=== PATIENT | female | born 1940 | race Caucasian/White ===

== ENCOUNTER 2021-02-11 22:23 | Emergency (ER) | payer MEDICARE, OTHER ==
[~2021-02-11] VITALS: Ht 157.5 cm; Wt 72.6 kg
== END 2021-02-11 23:25 | disposition left against medical advice (07) ==
LOC: ER 22:23
DX: R07.9 Chest pain, unspecified (principal); Z53.21 Procedure and treatment not carried out due to patient leaving prior to being seen by health care provider
CPT/HCPCS: 99282

== ENCOUNTER 2021-02-19 18:42 | Emergency (ER) | payer MEDICARE, OTHER ==
[~2021-02-19] VITALS: Ht 157.5 cm; Wt 76.2 kg
== END 2021-02-19 20:44 | disposition home or self-care (01) ==
LOC: CT 18:42 → ER 18:42
DX: R06.00 Dyspnea, unspecified (principal); R07.9 Chest pain, unspecified; I95.89 Other hypotension; N28.9 Disorder of kidney and ureter, unspecified
CPT/HCPCS: 71046; 99283-25

== ENCOUNTER → 2021-02-19 | Outpatient (CLI) | payer MEDICARE, OTHER ==
[2021-02-19 17:56] LABS: BASOPHILS ABSOLUTE AUTO 0.04 K/mm3 (0.00-0.23); BASOPHILS PERCENT AUTO 0 % (0-2); EOSINOPHILS ABSOLUTE AUTO 0.38 K/mm3 (0.00-0.68); EOSINOPHILS PERCENT AUTO 3 % (0-6); Hematocrit 36.6 % (33.0-51.0); Hemoglobin 11.2 g/dL (11.5-16.0); IMMATURE GRAN ABSOLUTE AUTO 0.07 K/mm3 (0.00-0.10); IMMATURE GRAN PERCENT AUTO 1 % (0-1); LYMPHOCYTES ABSOLUTE AUTO 0.94 K/mm3 (0.84-5.20); LYMPHOCYTES PERCENT AUTO 8 % (21-46); MONOCYTES ABSOLUTE AUTO 0.77 K/mm3 (0.16-1.47); MONOCYTES PERCENT AUTO 7 % (4-13); Mean Corpuscular HGB 27.9 pg (26.0-34.0); Mean Corpuscular HGB Conc 30.6 g/dL (31.5-36.5); Mean Corpuscular Volume 91 fL (80-100); Mean Platelet Volume 12.7 fL (9.1-12.4); NEUTROPHILS ABSOLUTE AUTO 8.98 K/mm3 (1.96-9.15); NEUTROPHILS PERCENT AUTO 80 % (41-73); Platelet Count 143 K/mm3 (150-400); RDW Coefficient Variation 14.7 % (11.7-14.2); RDW Standard Deviation 49.3 fL (35.1-46.3); Red Blood Cell Count 4.02 M/mm3 (3.80-5.20); White Blood Cell Count 11.18 K/mm3 (4.00-11.30)
[2021-02-19 18:08] LABS: Anion Gap 2 mmol/L (6-16); Blood Urea Nitrogen 33 mg/dL (8-24); Bun/Creatinine Ratio 16.7 (12.0-20.0); CO2, Blood 37 mmol/L (21-32); Calcium, Blood 8.2 mg/dL (8.5-10.1); Chloride, Blood 102 mmol/L (98-108); Creatinine, Blood 1.98 mg/dL (0.40-1.00); Glomerular Filtration Rate 24 (60-); Glucose, Blood 86 mg/dL (70-99); Potassium, Blood 4.4 mmol/L (3.5-5.5); Sodium, Blood 141 mmol/L (136-145)
[2021-02-19 18:13] LABS: Troponin I <0.017 ng/mL (0.000-0.040)
== END | disposition home or self-care (01) ==
LOC: LAB SHORT 17:49
PROVIDERS: Physician Assistant
DX: R07.9 Chest pain, unspecified (principal)
CPT/HCPCS: 80048; 84484; 85025

== ENCOUNTER 2022-06-23 13:10 | Emergency (ER) | payer MEDICARE, OTHER ==
[~2022-06-23] VITALS: Ht 167.6 cm; Wt 65.8 kg
[2022-06-23 13:43] LABS: BASOPHILS ABSOLUTE AUTO 0.03 K/mm3 (0.00-0.23); BASOPHILS PERCENT AUTO 0 % (0-2); EOSINOPHILS ABSOLUTE AUTO 0.18 K/mm3 (0.00-0.68); EOSINOPHILS PERCENT AUTO 2 % (0-6); Hematocrit 33.5 % (33.0-51.0); Hemoglobin 10.3 g/dL (11.5-16.0); IMMATURE GRAN ABSOLUTE AUTO 0.04 K/mm3 (0.00-0.10); IMMATURE GRAN PERCENT AUTO 0 % (0-1); LYMPHOCYTES ABSOLUTE AUTO 1.03 K/mm3 (0.84-5.20); LYMPHOCYTES PERCENT AUTO 11 % (21-46); MONOCYTES ABSOLUTE AUTO 0.59 K/mm3 (0.16-1.47); MONOCYTES PERCENT AUTO 6 % (4-13); Mean Corpuscular HGB 26.8 pg (26.0-34.0); Mean Corpuscular HGB Conc 30.7 g/dL (31.5-36.5); Mean Corpuscular Volume 87 fL (80-100); Mean Platelet Volume 12.5 fL (9.1-12.4); NEUTROPHILS ABSOLUTE AUTO 7.76 K/mm3 (1.96-9.15); NEUTROPHILS PERCENT AUTO 81 % (41-73); Platelet Count 183 K/mm3 (150-400); RDW Coefficient Variation 15.3 % (11.7-14.2); RDW Standard Deviation 48.8 fL (35.1-46.3); Red Blood Cell Count 3.85 M/mm3 (3.80-5.20); White Blood Cell Count 9.63 K/mm3 (4.00-11.30)
[2022-06-23 14:03] LABS: Albumin, Blood 3.2 g/dL (3.4-5.0); Albumin/Globulin Ratio 0.9 (0.8-1.8); Bilirubin, Total 0.3 mg/dL (0.1-1.0); Bun/Creatinine Ratio 16.2 (12.0-20.0); Calcium, Blood 8.8 mg/dL (8.5-10.1); Creatinine, Blood 1.48 mg/dL (0.40-1.00); Globulin, Blood 3.4 g/dL (2.2-4.0); Potassium, Blood 3.9 mmol/L (3.5-5.5); Total Protein, Blood 6.6 g/dL (6.4-8.2)
[2022-06-23 14:23] LABS: Influenza A, PCR NEGATIVE (NEGATIVE); Influenza B, PCR NEGATIVE (NEGATIVE); Resp Syncytial Virus, PCR NEGATIVE (NEGATIVE); SARS-Cov-2 (COVID-19) PCR, MMC NEGATIVE (NEGATIVE)
[2022-06-23 16:32] LABS: Source, Urine Clean Catch
[2022-06-23 16:42] LABS: Appearance, Urine Clear (Clear); Bilirubin, Urine Neg (Neg); Blood, Urine 2+ (Neg); Glucose Qualitative, Urine Neg (Neg); Ketones, Urine Neg (Neg); Leukocyte Esterase, Urine Neg (Neg); Nitrite, Urine Neg (Neg); Protein, Urine Neg (Neg); Urobilinogen, Urine NORM (Normal)
[2022-06-23 17:00] LABS: Color, Urine Pale Yellow (P-Yellow)
[2022-06-23 17:04] LABS: White Blood Cells, Urine 0-2 /hpf (0-5)
[2022-06-23 17:05] LABS: Bacteria Few /hpf; Hyaline Casts 0-2 /lpf (0-2); Squamous Epithelial Cells Few /hpf (Few); Transitional Epithelial Cells Rare /hpf (0-Rare)
== END 2022-06-23 19:23 | disposition home or self-care (01) ==
LOC: ER 13:10
PROVIDERS: Physician Assistant
DX: R53.1 Weakness (principal); J44.9 Chronic obstructive pulmonary disease, unspecified; I50.9 Heart failure, unspecified; F17.210 Nicotine dependence, cigarettes, uncomplicated; Z20.822 Contact with and (suspected) exposure to COVID-19
CPT/HCPCS: 0241U; 71046; 80053; 81001; 83605; 83880; 84484; 85025; 93005; 93010

== ENCOUNTER → 2022-07-12 | Outpatient (CLI) | payer MEDICARE, OTHER ==
[~2022-07-12] MED LIST: ELIQUIS2.5 M1 PO; FERRO-TIME325 M1 PO; LEVSOD75 PO; METOPROLOL TART25 MG PO; Norco 5-325 Ta1 EACH PO; SPIRONOLACTONE25 MG PO; TORSE20 PO
[2022-07-12 17:14] LABS: BASOPHILS ABSOLUTE AUTO 0.03 K/mm3 (0.00-0.23); BASOPHILS PERCENT AUTO 0 % (0-2); EOSINOPHILS ABSOLUTE AUTO 0.11 K/mm3 (0.00-0.68); EOSINOPHILS PERCENT AUTO 1 % (0-6); Hemoglobin 9.7 g/dL (11.5-16.0); IMMATURE GRAN ABSOLUTE AUTO 0.06 K/mm3 (0.00-0.10); IMMATURE GRAN PERCENT AUTO 1 % (0-1); LYMPHOCYTES ABSOLUTE AUTO 0.73 K/mm3 (0.84-5.20); LYMPHOCYTES PERCENT AUTO 7 % (21-46); MONOCYTES ABSOLUTE AUTO 0.57 K/mm3 (0.16-1.47); MONOCYTES PERCENT AUTO 5 % (4-13); Mean Corpuscular HGB 27.2 pg (26.0-34.0); Mean Corpuscular HGB Conc 30.3 g/dL (31.5-36.5); Mean Corpuscular Volume 90 fL (80-100); NEUTROPHILS ABSOLUTE AUTO 9.06 K/mm3 (1.96-9.15); NEUTROPHILS PERCENT AUTO 86 % (41-73); Platelet Count 194 K/mm3 (150-400); RDW Coefficient Variation 16.6 % (11.7-14.2); RDW Standard Deviation 54.6 fL (35.1-46.3); Red Blood Cell Count 3.56 M/mm3 (3.80-5.20); White Blood Cell Count 10.56 K/mm3 (4.00-11.30)
[2022-07-12 17:25] LABS: Mean Platelet Volume 13.1 fL (9.1-12.4)
== END | disposition home or self-care (01) ==
LOC: LAB SHORT 14:02 → LAB 14:02
PROVIDERS: Physician Assistant
DX: C34.11 Malignant neoplasm of upper lobe, right bronchus or lung (principal); E11.22 Type 2 diabetes mellitus with diabetic chronic kidney disease; N18.9 Chronic kidney disease, unspecified; K21.9 Gastro-esophageal reflux disease without esophagitis
CPT/HCPCS: 85025

== ENCOUNTER 2022-07-15 13:22 | Inpatient (IN) | payer MEDICARE, OTHER ==
[~2022-07-15] VITALS: Ht 157.5 cm; Wt 76.8 kg
[2022-07-15 14:27] LABS: Base Excess Venous 10.2 mmol/L; Bicarbonate Venous 31.8 mmol/L (24.0-30.0); PCO2 Venous 66.2 mmHg (38-42); pH Blood Venous 7.34 (7.34-7.37)
[2022-07-15 14:29] LABS: BASOPHILS ABSOLUTE AUTO 0.06 K/mm3 (0.00-0.23); BASOPHILS PERCENT AUTO 1 % (0-2); EOSINOPHILS ABSOLUTE AUTO 0.15 K/mm3 (0.00-0.68); EOSINOPHILS PERCENT AUTO 2 % (0-6); Hematocrit 32.5 % (33.0-51.0); Hemoglobin 9.9 g/dL (11.5-16.0); IMMATURE GRAN ABSOLUTE AUTO 0.04 K/mm3 (0.00-0.10); IMMATURE GRAN PERCENT AUTO 0 % (0-1); LYMPHOCYTES ABSOLUTE AUTO 1.01 K/mm3 (0.84-5.20); LYMPHOCYTES PERCENT AUTO 10 % (21-46); MONOCYTES ABSOLUTE AUTO 0.55 K/mm3 (0.16-1.47); MONOCYTES PERCENT AUTO 6 % (4-13); Mean Corpuscular HGB 27.3 pg (26.0-34.0); Mean Corpuscular HGB Conc 30.5 g/dL (31.5-36.5); Mean Corpuscular Volume 90 fL (80-100); Mean Platelet Volume 12.9 fL (9.1-12.4); NEUTROPHILS ABSOLUTE AUTO 8.15 K/mm3 (1.96-9.15); NEUTROPHILS PERCENT AUTO 82 % (41-73); Platelet Count 198 K/mm3 (150-400); RDW Coefficient Variation 16.3 % (11.7-14.2); Red Blood Cell Count 3.62 M/mm3 (3.80-5.20); White Blood Cell Count 9.96 K/mm3 (4.00-11.30)
[2022-07-15 14:51] LABS: Albumin, Blood 3.3 g/dL (3.4-5.0); Bilirubin, Total 0.3 mg/dL (0.1-1.0); Bun/Creatinine Ratio 14.8 (12.0-20.0); Calcium, Blood 8.2 mg/dL (8.5-10.1); Creatinine, Blood 1.76 mg/dL (0.40-1.00); Globulin, Blood 3.3 g/dL (2.2-4.0); Total Protein, Blood 6.6 g/dL (6.4-8.2)
[2022-07-15 15:33] LABS: Influenza A, PCR NEGATIVE (NEGATIVE); Influenza B, PCR NEGATIVE (NEGATIVE); Resp Syncytial Virus, PCR NEGATIVE (NEGATIVE); SARS-Cov-2 (COVID-19) PCR, MMC NEGATIVE (NEGATIVE)
[2022-07-15 17:59] LABS: CPK Creatine Kinase 37 U/L (26-193)
[2022-07-16 01:42] LABS: BASOPHILS ABSOLUTE AUTO 0.01 K/mm3 (0.00-0.23); BASOPHILS PERCENT AUTO 0 % (0-2); EOSINOPHILS PERCENT AUTO 0 % (0-6); Hematocrit 31.8 % (33.0-51.0); Hemoglobin 9.7 g/dL (11.5-16.0); Mean Corpuscular HGB 27.1 pg (26.0-34.0); Mean Corpuscular HGB Conc 30.5 g/dL (31.5-36.5); Mean Corpuscular Volume 89 fL (80-100); Platelet Count 165 K/mm3 (150-400); RDW Coefficient Variation 16.2 % (11.7-14.2); RDW Standard Deviation 52.7 fL (35.1-46.3); Red Blood Cell Count 3.58 M/mm3 (3.80-5.20); White Blood Cell Count 7.48 K/mm3 (4.00-11.30)
[2022-07-16 01:48] LABS: IMMATURE GRAN ABSOLUTE AUTO 0.05 K/mm3 (0.00-0.10); IMMATURE GRAN PERCENT AUTO 1 % (0-1); LYMPHOCYTES PERCENT AUTO 4 % (21-46); MONOCYTES ABSOLUTE AUTO 0.01 K/mm3 (0.16-1.47); MONOCYTES PERCENT AUTO 0 % (4-13); NEUTROPHILS ABSOLUTE AUTO 7.11 K/mm3 (1.96-9.15); NEUTROPHILS PERCENT AUTO 95 % (41-73)
[2022-07-16 02:17] LABS: Albumin, Blood 3.1 g/dL (3.4-5.0); Albumin/Globulin Ratio 0.9 (0.8-1.8); Bilirubin, Total 0.4 mg/dL (0.1-1.0); Bun/Creatinine Ratio 16.7 (12.0-20.0); Calcium, Blood 8.1 mg/dL (8.5-10.1); Creatinine, Blood 1.56 mg/dL (0.40-1.00); Globulin, Blood 3.4 g/dL (2.2-4.0); Potassium, Blood 4.2 mmol/L (3.5-5.5); Total Protein, Blood 6.5 g/dL (6.4-8.2)
[2022-07-16] MEDS ORDERED: Norco 5-325 Ta1 EACH PO (10:01)
[2022-07-16] MEDS ORDERED: METOPROLOL TART25 MG PO (10:21)
[2022-07-16] MEDS ORDERED: ELIQUIS2.5 M1 PO (10:21)
[2022-07-16] MEDS ORDERED: SPIRONOLACTONE25 MG PO (10:21)
[2022-07-16] MEDS ORDERED: TORSE20 PO (10:22)
[2022-07-16] MEDS ORDERED: FERRO-TIME325 M1 PO (10:23)
--- NOTE | 2022-07-16 12:47 | NUR ---
"Spiritual Care | Nurse referral Pt. is in bed and welcomes my visit. Pt. is a recent admit and is pleasant. Pt. is unsettled about broken relationship with her daughter. Listen empathetically as I facilitate a life review. Pt. displays evidence of emotion and tears at moments in the life review. With a calming presence and theraputic listening I am able to establish rapport. Prayed with Pt. Pt. verbalized gratitude for the spiritual care visit and requested this platinumsmith to return."
--- NOTE | 2022-07-16 13:49 | NUR ---
Echocardiogram completed. Stat overread requested.
--- NOTE | 2022-07-16 18:51 | NUR ---
SHIFT SUMMARY PT ARRIVED TO PCU APPROX 1115. SHE IS ALERT AND ORIENTED X 4 BUT HARD OF HEARING W/ POOR VISION. SPO2 96% VIA 9L HIGH FLOW NC, BP AND HR STABLE, VSS. SHE HAS DENIED CHEST PAIN/PRESSURE BUT REPORTED PAIN IN R LEG. SHE ALSO REPORTED HX OF R KNEE REPLACEMENT AND R LEG FX. R CALF DOES APPEAR SLIGHTLY SWOLLEN COMPARED TO LEFT. SEE EMAR FOR PAIN MANAGEMENT. CT PE STUDY DONE TODAY, SEE CHART FOR REVIEW OF RESULTS. IV IN L AC IS SALINE LOCKED. PT REPORTED USING A FWW AND A WHEELCHAIR AT BASELINE BUT IS ABLE TO SHIFT POSITION IN BED. SHE HAS BEEN SLEEPING FOR MAJORITY OF AFTERNOON BUT IS ABLE TO MAKE HER NEEDS KNOWN. PURWICK IS IN PLACE AND CONNECTED TO SUCTION, BRIEFS IN PLACE. PT HAS BEEN ABLE TO NOTIFY STAFF WHEN VOIDING OR IF SHE FEELS WET. PT NOW APPEARS TO BE SLEEPING, CALL LIGHT IS IN REACH. WILL CONTINUE TO MONITOR UNTIL REPORT GIVEN.
--- NOTE | 2022-07-16 22:53 | NUR ---
UPDATE V-TACH AT AROUND 1948 THIS PM, PT HAD A 14 BEAT RUN OF V-TACH ACCORDING TO TELEMETRY. PT DID NOT REPORT ANY CP OR PRESSURE OR DIZZYNESS DURING THE EVENT. THE PT CONVERTED TO SR IN THE 60-70'S. DR. SASHA Ca WAS NOTIFIED OF THIS EVENT WITH NO NEW ORDERS AT THIS TIME. PAIN MANAGEMENT PT REPORTED MODERATE RIGHT LEG PAIN IN WHICH THE PT HAS REPORTED THIS A CHRONIC ISSUE GIVEN HER MEDICAL HX WITH THIS EXTREMITIY. PT'S HOME MED REC SHOWS PT TAKES NORCO 5/325MG BID PRN FOR MODERATE PAIN. DR. SASHA Ca NOTIFIED OF THIS ISSUE AND SHE ORDERED CHANGES TO PT'S EMAR TO REFLECT HER HOME DOSE. PT PAIN MANAGED PER EMAR.
[2022-07-17 04:13] LABS: BASOPHILS ABSOLUTE AUTO 0.03 K/mm3 (0.00-0.23); BASOPHILS PERCENT AUTO 0 % (0-2); EOSINOPHILS PERCENT AUTO 1 % (0-6); Hematocrit 29.4 % (33.0-51.0); Hemoglobin 8.9 g/dL (11.5-16.0); IMMATURE GRAN ABSOLUTE AUTO 0.02 K/mm3 (0.00-0.10); IMMATURE GRAN PERCENT AUTO 0 % (0-1); LYMPHOCYTES ABSOLUTE AUTO 0.91 K/mm3 (0.84-5.20); LYMPHOCYTES PERCENT AUTO 12 % (21-46); MONOCYTES ABSOLUTE AUTO 0.55 K/mm3 (0.16-1.47); MONOCYTES PERCENT AUTO 7 % (4-13); Mean Corpuscular HGB Conc 30.3 g/dL (31.5-36.5); Mean Corpuscular Volume 89 fL (80-100); Mean Platelet Volume 12.4 fL (9.1-12.4); NEUTROPHILS ABSOLUTE AUTO 6.07 K/mm3 (1.96-9.15); NEUTROPHILS PERCENT AUTO 79 % (41-73); Platelet Count 158 K/mm3 (150-400); RDW Coefficient Variation 16.5 % (11.7-14.2); RDW Standard Deviation 53.6 fL (35.1-46.3); White Blood Cell Count 7.68 K/mm3 (4.00-11.30)
[2022-07-17 04:38] LABS: Anion Gap 4 mmol/L (6-16); Blood Urea Nitrogen 28 mg/dL (8-24); Bun/Creatinine Ratio 20.1 (12.0-20.0); CO2, Blood 36 mmol/L (21-32); Calcium, Blood 8.3 mg/dL (8.5-10.1); Chloride, Blood 100 mmol/L (98-108); Creatinine, Blood 1.39 mg/dL (0.40-1.00); Glomerular Filtration Rate 38 (60-); Glucose, Blood 116 mg/dL (70-99); Phosphorus, Blood 3.2 mg/dL (2.5-4.9); Potassium, Blood 3.8 mmol/L (3.5-5.5); Sodium, Blood 140 mmol/L (136-145)
--- NOTE | 2022-07-17 05:14 | NUR ---
SHIFT SUMMARY PT IS A/Ox4 AND IS COOPERATIVE WITH CARE PROVIDED BY STAFF. PT CAN BE FORGETFULL AT TIMES, BUT IS EASILY ABLE TO BE REORIENTATED. PT'S O2 REQUIREMENTS OF SLOWLY INCREASED T/O THE SHIFT INCREASING FROM 7L VIA HIGH FLOW NC TO 11-12. FURTHERMORE, PT HAS COMPLAINED OF INCREASING GAS PAIN. ATTEMPTED TO CONTACT MD SEVERAL TIMES, BUT HAVE NOT RECEIVED A CALL BACK AT THIS TIME. [facility] NURSE STEPHINE AWARE OF THIS ISSUE WELL. CARDIAC MANUEL, PT IS SR 60-70'S WITH NO CP OR PRESSURE REPORTED AT THIS TIME. BP'S CONTINUE TO BE SOFT, BUT STABLE IN THE 90-100'S SBP. PURIWICK SYSTEM IN PLACE DRAINING CLEAR/YELLOW COLORED URINE T/O THE SHIFT. HOME MED REC/RECORDS REQUEST FROM [facility] WAS NOT DONE UPON PT'S ADMISSION TO PCU. WILL PASS INFO ALONG TO DAYSHIFT WHEN FACILITIES ARE OPEN TO COMPLETE SAID REQUESTS.
[2022-07-17] MEDS ORDERED: LEVSOD75 PO (13:33)
--- NOTE | 2022-07-17 17:32 | NUR ---
PT SUMMARY: NO ACUTE CHANGE FOR THE SHIFT, VITALS HAS BEEN STABLE, PT HAS BEEN ON 9L OF O2 MOST OF THE SHIFT TITRATING O2 BETWEEN 8-12L PT DESATS TO HIGH 70'S WITH ACTIVITIES OR EVEN WITH TALKING, TAKES TIME FOR PT TO RECOVER. MEDICATED TWICE FOR THE SHIFT FOR RIGHT LEG PAIN. PT SAT UP ON THE SIDE OF THE BED FOR BREAKFAST THIS MORNING. RECEIVED A BED BATH WELL. PUREWICK IN PLACE PT PUT OUT ATLEAST 3L OF URINE OUTPUT CLEAR IN COLOR. PT HAS BEEN EMOTIONAL AND ANXIOUS BOUT HER CURRENT HEALTH STATUS PT IS NOT MUCH RECEPTIVE WITH INFORMATION GIVEN FAR BREATHING INSTRUCTIONS AND OTHER HEALTH ISSUES RELATED INFORMATION PT KEEPS SAYING "CINDY BEEN THROUGH THIS FOR A LONG TIME NOW I KNOW WHAT IM DOING". PT CALLS OFTEN SOMETIMES FOR THE SAME REASON, EXPLAINED TO THE PT THE PROPER USE OF CALL LIGHT AND SET BOUNDARIES PT WAS AGREEABLE. PT WAS GIVEN SIMETHICONE TABS TWICE FOR THE SHIFT REFUSED DINNER AND REQUESTED GELOS. ALSO ADDRESSED TO DR POWER HER REQUEST FOR SLEEP MEDICATION, DESYREL ORDERED FOR BEDTIME, PT WAS ALSO RESTARTED ON THYROID MEDS. PT NOW RESTING IN BED CALL LIGHTS IN REACH WILL REPORT TO ONCOMING SHIFT
--- NOTE | 2022-07-18 02:30 | NUR ---
UPDATE AROUND 0100 THIS AM PT'S HR CONVERTED FROM SR/70'S TO AFIB WITH A HR RANGING FROM THE 120-150'S. PT APPEARED TO BE ASYMPOMATIC FOR SHE DID NOT REPORT ANY CP, PRESSURE, DIZZYNESS, OR LIGHT HEADEDNESS. AND EKG WAS PERFORMED PER CHARGE NURSE'S ORDERS THAT STATES AFIB RVR. PT'S SBP WAS IN THE MID TO LOW 90'S. ATTEMPTED TO CONTACT MD ABOUT PT'S CHANGE IN CONDITION, BUT CALL WENT RIGHT TO VOICEMAIL. I CALLED AGAIN A FEW MINUTES LATER WITH THE SAME RESULT. VAGEL MANEUVER'S WERE ATTEMPTED IN WHICH THE PT CONVERTED BACK INTO SR 70-80'S. PT HAS REMAINED IN SR SINCE. WILL ATTEMPT TO CONTACT DR. BAEZ AGAIN TO GIVE UPDATE ON SITUATION.
--- NOTE | 2022-07-18 03:00 | NUR ---
UPDATE WAS ABLE TO GET INTO CONTACT WITH THE ATTENDING DR. BAEZ AND INFORMED HIM OF THE SITUATION REGARDING THE PT'S CHANGE IN RHYTHM. NO NEW ORDERS AT THIS TIME.
[2022-07-18 05:34] LABS: BASOPHILS ABSOLUTE AUTO 0.04 K/mm3 (0.00-0.23); BASOPHILS PERCENT AUTO 1 % (0-2); EOSINOPHILS ABSOLUTE AUTO 0.25 K/mm3 (0.00-0.68); EOSINOPHILS PERCENT AUTO 3 % (0-6); IMMATURE GRAN ABSOLUTE AUTO 0.03 K/mm3 (0.00-0.10); IMMATURE GRAN PERCENT AUTO 0 % (0-1); LYMPHOCYTES ABSOLUTE AUTO 0.69 K/mm3 (0.84-5.20); LYMPHOCYTES PERCENT AUTO 8 % (21-46); MONOCYTES ABSOLUTE AUTO 0.52 K/mm3 (0.16-1.47); MONOCYTES PERCENT AUTO 6 % (4-13); Mean Corpuscular HGB 26.8 pg (26.0-34.0); Mean Corpuscular HGB Conc 30.3 g/dL (31.5-36.5); Mean Corpuscular Volume 89 fL (80-100); Mean Platelet Volume 12.3 fL (9.1-12.4); NEUTROPHILS ABSOLUTE AUTO 6.94 K/mm3 (1.96-9.15); NEUTROPHILS PERCENT AUTO 82 % (41-73); Platelet Count 183 K/mm3 (150-400); RDW Coefficient Variation 16.4 % (11.7-14.2); RDW Standard Deviation 52.9 fL (35.1-46.3); Red Blood Cell Count 3.73 M/mm3 (3.80-5.20); White Blood Cell Count 8.47 K/mm3 (4.00-11.30)
[2022-07-18 05:49] LABS: Bun/Creatinine Ratio 15.6 (12.0-20.0); Calcium, Blood 8.6 mg/dL (8.5-10.1); Creatinine, Blood 1.22 mg/dL (0.40-1.00); Potassium, Blood 3.6 mmol/L (3.5-5.5)
--- NOTE | 2022-07-18 06:51 | NUR ---
UPDATE PT HAS CONVERTED BACK TO AFIB RVR WITH A HR RANGING FROM THE 120-150'S. PT DOES NOT REPORTED ANY CP OR PRESSURE AT THIS TIME. BP STABLE WITH SBP RANGING IN THE 100'S. VAGEL MANEUVERS WERE NOT EFFECTIVE DR. BAEZ NOTIFIED AND THE PT'S MORNING DOSE OF METOPROLOL WAS ORDERD TO BE GIVEN NOW. IV LOPRESSURE IF PT CONTINUES TO REMAIN IN AFIB. WILL CONTINUE TO MONITOR
--- NOTE | 2022-07-18 06:55 | NUR ---
SHIFT SUMMARY PT IS A/Ox3-4 AND IS COOPERATIVE WITH CARE PROVIDED BY STAFF. PT IS FORGETFUL AND CAN BE VERY ANXIOUS AT TIMES. MAINTAIN SPO2 >90% ON 9-15L VIA HIGH FLOW NC WITH DYSPNEA/DESATURATION NOTED WITH EXERTION. CARDIAC MANUEL, PT HAS FLIPPED IN AND OUT OF AFIB RVR T/O THE NIGHT, BUT DOES NOT REPORTED ANY CP OR PRESSURE DURING THESE EPISODES. SEE UPDATE NOTES FOR MORE DETAILS. PT IS INCONTINENT OF URINE, PURWICK IN PLACE CONNECTED TO CONTINIOUS SUCTION. WILL PASS ON INFORMATION TO DAYSHIFT RN.
--- NOTE | 2022-07-18 17:38 | NUR ---
SHIFT SUMMARY PT ALERT. PARTICULAR ABOUT HOW PT WANTS THINGS. SP02>90% ON 14L HIFLO. DESATS W/ CONVERSATION OR ACTIVITY, NON REBREATHER APPLIED WHEN DESATTING FOR RECOVERY. PT MOUTH BREATHES. WHEN EDUCATED TO TAKE DEEP BREATHS THROUGH NOSE FOR RECOVERY, PT REPLIES, "I AM I AM. I KNOW HOW TO DO THIS." PT NOT RECEPTIVE TO EDUCATION. PURWICK APPLIED TO SUCTION, DRAINING 1.5 L THIS SHIFT. ONE FORMED FRANKLYN THIS SHIFT, ASSISTED PT TO BSC. PT CURRENTLY UP IN CHAIR. PT SISTER IN ROOM THIS EVENING. UPDATED SISTER OUTSIDE OF ROOM. SISTER WOULD LIKE MD TO CALL AND UPDATE HER IN AM, NUMBER IN FRONT OF CHART. SISTER STATES SHE WOULD KEEP THE PT THROUGH [facility] BUT CANNOT CARE FOR HER AFTER THAT. NEEDS HELP TO FIND PIANO MACHINE OPERATOR/HOUSING FOR PT. CALL LIGHT IN REACH.
[2022-07-19 04:53] LABS: BASOPHILS ABSOLUTE AUTO 0.04 K/mm3 (0.00-0.23); BASOPHILS PERCENT AUTO 0 % (0-2); EOSINOPHILS ABSOLUTE AUTO 0.26 K/mm3 (0.00-0.68); EOSINOPHILS PERCENT AUTO 3 % (0-6); Hematocrit 38.9 % (33.0-51.0); Hemoglobin 11.7 g/dL (11.5-16.0); IMMATURE GRAN ABSOLUTE AUTO 0.04 K/mm3 (0.00-0.10); IMMATURE GRAN PERCENT AUTO 0 % (0-1); LYMPHOCYTES ABSOLUTE AUTO 0.79 K/mm3 (0.84-5.20); LYMPHOCYTES PERCENT AUTO 8 % (21-46); MONOCYTES PERCENT AUTO 5 % (4-13); Mean Corpuscular HGB 26.6 pg (26.0-34.0); Mean Corpuscular HGB Conc 30.1 g/dL (31.5-36.5); Mean Corpuscular Volume 88 fL (80-100); Mean Platelet Volume 12.6 fL (9.1-12.4); NEUTROPHILS ABSOLUTE AUTO 8.23 K/mm3 (1.96-9.15); NEUTROPHILS PERCENT AUTO 84 % (41-73); Platelet Count 233 K/mm3 (150-400); RDW Coefficient Variation 16.2 % (11.7-14.2); RDW Standard Deviation 51.9 fL (35.1-46.3); White Blood Cell Count 9.86 K/mm3 (4.00-11.30)
[2022-07-19 05:17] LABS: Bun/Creatinine Ratio 12.3 (12.0-20.0); Calcium, Blood 8.7 mg/dL (8.5-10.1); Creatinine, Blood 1.14 mg/dL (0.40-1.00); Potassium, Blood 3.5 mmol/L (3.5-5.5)
--- NOTE | 2022-07-19 05:37 | NUR ---
SHIFT SUMMARY PT IS A/Ox4 AND IS COOPERATIVE WITH CARE PROVIDED BY MEMBERS OF STAFF. CAN BE VERY ANXIOUS AT TIMES AND APPEARS TO HAVE MINIMAL MOTIVATION TO PERFORM TASKS ON HER OWN. PT HAS MAINTAINED SPO2 >90% ON 10-15L VIA HIGH FLOW NC WITH SOB/DESATURATION WITH ACTIVITY. PT CONTINUES TO USE NON-REBREATHER MASK PRN FOR SOB FOR SHE REFUSES TO USE AIRVO. CARIDAC MANUEL, PT HAS MAINTAINS SR T/O THE SHIFT WITH NO EPISODES OF AFIB RVR TONIGHT. BP CONTINUES TO BE STABLE. PT CONINUES TO BE INCONTINENT OF URINE, PURWICK IN PLACE. PT MAY BENEFIT FROM CASE MANAGMENT DUE TO COMPLICATED FAMILY DYNAMICS AND PLACEMENT ISSUES. WILL PASS ALONE TO DAYSHIFT RN. ROBER, VSCharisma T/O THE SHIFT
--- NOTE | 2022-07-19 09:37 | NUR ---
UPDATE PT STATES SHE DOES NOT WISH TO RETURN TO [facility] AFTER DISCHARGE. SPOKE WITH CARE MANAGEMENT IN THAT REGARD AND CM STATED THE FIRST STEP IS TO GET PT/OT EVAL TO SEE WHAT WOULD BE APPROPRIATE FOR DC. CALL PLACED TO MD BAEZ. MD BAEZ W/ ORDERS FOR PT/OT EVAL.
--- NOTE | 2022-07-19 19:30 | NUR ---
shift summary AT END OF SHIFT PT CONVERTED TO AFIB, HR 150'S. CALL PLACED TO MD LONDON. MD LONDON W/ ORDERS FOR 5 MG METOPROLOL IV. PT CURRENTLY NSR, HR 70'S, BP SOFT. PRN MIDODRINE IN EMAR VIA MD LONDON IF NEEDED. PT A&OX4. SP02 STILL ON 15L HI KILO W/ NON REBREATHER FOR SUPPLEMENTATION. PT USED BEDPAN TO HAVE LARGE BM THIS EVENING. C/O OF GAS, MEDICATED PER EMAR. PURWICK IN CLEAN BRIEF. PT UP IN CHAIR PART OF DAY. WORKED WITH OT, REFUSED TO WORK WITH PT TODAY. MD BAEZ IN ROOM TO ASSESS THIS AM, CONSULTED MD MCCARTHY. MEDICATION RECORDS RECEIVED FROM [facility] REGARDING PULMONARY HX. CALL LIGHT IN REACH.
--- NOTE | 2022-07-20 05:38 | NUR ---
SHIFT SUMMARY A/OX3, ANXIOUS AND DEMANDING TOWARDS STAFF AT TIMES. C/O PAIN TO R. SIDE AND R. LEG, MEDICATED PER EMAR. HYPOTENSIVE AT BEGINNING OF SHIFT D/T IV LOPRESSOR PUSH. VS IMPROVED WITHOUT INTERVENTION. CURRENTLY ON 15L HIFLOW NC, DESATS EASILY WITH MOVEMENT, PT USES NON REBREATHER PRN. TELE SR IN THE 60S. VSS, NO ACUTE CHNAGES AT THIS TIME. BED IN LOWEST POSITION WITH CALL LIGHT IN REACH. WILL CONTINUE TO MONITOR AND REPORT TO ONCOMING RN.
[2022-07-20 06:11] LABS: Calcium, Blood 8.8 mg/dL (8.5-10.1); Creatinine, Blood 1.2 mg/dL (0.40-1.00); Potassium, Blood 3.4 mmol/L (3.5-5.5)
--- NOTE | 2022-07-20 07:19 | NUR ---
Spo2 97% on 15 l/min O2 n.c. delivery. Decreased oxygen delivery to 10 l /min at this time.
--- NOTE | 2022-07-20 07:44 | NUR ---
spO2 94% on 8 l/min n.c. delivery, at rest, lying in bed sleeping.
--- NOTE | 2022-07-20 08:13 | NUR ---
Pt required 15 l/min O2 during activity of going to [facility] for toileting. SPO2 dropped to 72%, improved to 86-88% during the activity with the additional oxygen.
--- NOTE | 2022-07-20 11:47 | NUR ---
Pt is pleasantly conversant, sitting up in chair, talking a lot about her plan to go to rehab [place] near where she has some family. Spo2 92% while talking on 8 l/min. She is using the non-rebreather mask for recovery after or during activity for hypoxia. Blood pressure is stable, and the pt has no c/o discomfort nor pain at this time. Purewick in place, draining clear yellow urine following lasix IV adminstration this morning.
--- NOTE | 2022-07-20 12:51 | NUR ---
Assisted from chair back to bed after taking oral medications. Given Gas X for abdominal discomfort, states relief with Gas X. Purewick was replaced with new, clean one. Pt lying on her right side. Spo2 92% on 10 l/min.
--- NOTE | 2022-07-20 15:49 | NUR ---
Pt appears to be sleeping, lying on her left side. Respirations are even, unlabored. Head of bed is not elevated.
--- NOTE | 2022-07-20 16:50 | NUR ---
Attends change after urinary incontinence while sleeping. Pericare assistance also given. Purewick was changed. Pt requesting Gas X for abdominal discomfort which she anticipates she will have when she starts eating dinner soon.
--- NOTE | 2022-07-20 18:21 | NUR ---
The pt today was only out of bed to the chair once for a meal, and then twice for toileting. She declined to work with occupational therapy this afternoon. She has preferred to have a purewick in place (IV lasix being given tid) to help with her frequent toileting needs. Incontinent of stool once, and continent of stool the other times. She complains frequently that eating is causing "gas pain", relieved by Simethecone tablets, and points to the right upper abdomen as the site of discomfort. Her appetite has been poor. She requires help for her ADLs. Oxygen requirements have been 8-15 l/min, depending on her level of activity. She uses the non-rebreather mask as well for recovery. States that she uses 4-8 l/min at home. Lung sounds were wheezy in the bases, fine inspiratory crackles also in the bases. She states that her sister in [facility] had her come down to live with her but "no longer wants anything to do with me". She said that she has family up [place] as would like to go to rehab up [place] and then to live close to her family in [place] or [place].
[2022-07-21 05:32] LABS: Bun/Creatinine Ratio 16.7 (12.0-20.0); Creatinine, Blood 1.26 mg/dL (0.40-1.00); Potassium, Blood 3.8 mmol/L (3.5-5.5)
--- NOTE | 2022-07-21 05:49 | NUR ---
SHIFT SUMMARY A/OX4, SBA WITH FWW FOR TRANSFERS. C/O R. KNEE PAIN, MEDICATED PER EMAR X1. PT REQUIRING 15L HIGHFLOW VIA NC WELL NONREBREATHER PRN. VSS, NO ACUTE CHANGES AT THIS TIME. BED IN LOWEST POSITION WITH CALL LIGHT IN REACH. WILL CONTINUE TO MONITOR AND REPORT TO ONCOMING RN.
--- NOTE | 2022-07-21 14:40 | NUR ---
pt is going for chest and abdominal xrays at this time.
--- NOTE | 2022-07-22 04:44 | NUR ---
SHIFT SUMMARY: PT ALERT AND ORIENTED X4, ABLE TO FOLLOW COMMANDS AND MAKE NEEDS KNOWN. CAN BE ANXIOUS AND DEMANDING WITH CARE. BP AND HR STABLE, AFEBRILE, PT ON 12L HIFLOW SATURATIONS >92%, NON REBREATHER AT BEDSIDE FOR RECOVERY NEEDS. PULSES STRONG AND EQUAL THROUGHOUT. PURE WICK IN PLACE TO SUCTION FOR INCONTINENCE, NO BM THIS SHIFT. PT RESTLESS THROUGHOUT THE NIGHT, MEDICATED X2 FOR PAIN, SEE EMAR. Q2 POSITIONING TO MAINTAIN SKIN INTEGRITY, PT ENCOURAGED TO HELP WITH POSITION CHANGES. BED IN LOW, CALL LIGHT IN REACH, WILL REPORT TO ONCOMING RN.
[2022-07-22 04:56] LABS: Bun/Creatinine Ratio 19.2 (12.0-20.0); Calcium, Blood 9.5 mg/dL (8.5-10.1); Creatinine, Blood 1.46 mg/dL (0.40-1.00)
[2022-07-22 10:46] LABS: SARS-Cov-2 (COVID-19) PCR, MMC NEGATIVE (NEGATIVE)
[2022-07-22] MEDS ORDERED: FURO40 PO (10:56)
[2022-07-22] MEDS ORDERED: DOCU100 PO (10:56)
[2022-07-22] MEDS ORDERED: ALBU2.5V5 INH (10:56)
[2022-07-22] MEDS ORDERED: MIDO5 PO (10:57)
[2022-07-22] MEDS ORDERED: POTA10T PO (10:57)
[2022-07-22] MEDS ORDERED: IPRAT-ALBUT 0.5-3 ML INH (10:57)
[2022-07-22] MEDS ORDERED: PRED20 PO (10:58)
[2022-07-22] MEDS ORDERED: TRAZ50 PO (10:59)
[2022-07-22] MEDS ORDERED: SIME80CH PO (10:59)
--- NOTE | 2022-07-22 13:55 | NUR ---
Pt was sitting up in chair, waiting for her ambulance ride from [facility] to [facility] in [place]. She transferred independently from the recliner chair to the stretcher, [employer] and EMT present. Pt's sister Toya was also present, having brought a large suitcase and bag of the pt's belongings which were taken by the [facility] to the vehicle to take with them to [facility].
== END 2022-07-22 13:26 | DRG 291 ==
LOC: ER 13:22 → MEDS 16:41 → ER 16:41 → ERHOLD 07-16 01:20 → PCU 07-16 01:20
PROVIDERS: Hospitalist; Internal Medicine; Student in an Organized Health Care Education/Training Program; ADMIT Internal Medicine
PROC: 5A0945A Assistance with Respiratory Ventilation, 24-96 Consecutive Hours, High Flow/Velocity Cannula (ICD-10-PCS; principal; 2022-07-16)
DX: I13.0 Hypertensive heart and chronic kidney disease with heart failure and stage 1 through stage 4 chronic kidney disease, or unspecified chronic kidney disease (principal); I50.33 Acute on chronic diastolic (congestive) heart failure; J96.21 Acute and chronic respiratory failure with hypoxia; J70.1 Chronic and other pulmonary manifestations due to radiation; I27.20 Pulmonary hypertension, unspecified; Z66 Do not resuscitate; Z51.5 Encounter for palliative care; I27.81 Cor pulmonale (chronic); F17.210 Nicotine dependence, cigarettes, uncomplicated; D63.1 Anemia in chronic kidney disease; N18.30 Chronic kidney disease, stage 3 unspecified; J43.9 Emphysema, unspecified; J45.909 Unspecified asthma, uncomplicated; I95.89 Other hypotension; Z20.822 Contact with and (suspected) exposure to COVID-19; Z85.118 Personal history of other malignant neoplasm of bronchus and lung; Z87.01 Personal history of pneumonia (recurrent); Z85.3 Personal history of malignant neoplasm of breast; Z98.890 Other specified postprocedural states; Z79.01 Long term (current) use of anticoagulants; Z79.899 Other long term (current) drug therapy; Z79.891 Long term (current) use of opiate analgesic; Z99.81 Dependence on supplemental oxygen; Z92.3 Personal history of irradiation
CPT/HCPCS: 0241U; 36415; 71045; 71260; 74018; 80048; 80053; 80069; 82550; 82803; 83605; 83880; 84484; 85025; 85379; 93005; 93010; 93306; 94640; 94644; 94664; 94760; 94762; 96374; 96375; 96376; 97110; 97116; 97162; 97165; 97530; 99285-25; A9270; J0456; J1650; J1940; J2920; J2930; J7030; J7050; J7512; Q9967; U0004